=== PATIENT | male | born 1945 | race Caucasian/White ===

== ENCOUNTER → 2016-08-20 11:32 | Outpatient (CLI) | payer MEDICARE, OTHER | END | disposition home or self-care (01) | LOC: D.MRI 08-16 16:00 | DX: M25.571 Pain in right ankle and joints of right foot (principal) ==

== ENCOUNTER → 2016-10-28 07:57 | Outpatient (CLI) | payer MEDICARE, OTHER | LOC: D.MRI 10-23 08:30 | DX: M25.562 Pain in left knee (principal) ==

== ENCOUNTER 2016-11-08 05:29 | Day surgery (SDC) | payer MEDICARE, OTHER ==
[2016-11-07 14:05] LABS: HEMATOCRIT 41.6 % (42.0-54.0); HEMOGLOBIN 13.1 g/dL (13.5-17.5); MCH 30.7 pg (26.0-34.0); MCHC 31.5 g/dL (31.0-37.0); MCV 97.4 fL (80.0-100.0); MEAN PLATELET VOLUME 9.1 fL (7.4-10.4); RBC 4.27 10x6/uL (4.20-6.10); RDW 15.2 % (11.5-14.5); WBC 8.3 10x3/uL (4.8-10.8)
[2016-11-07 14:28] LABS: ANION GAP 14.6 mmol/L (8-16); CALCIUM 8.7 mg/dL (8.5-10.1); CARBON DIOXIDE 24.7 mmol/L (21.0-32.0); CREATININE - SERUM 1.1 mg/dL (0.6-1.3); POTASSIUM - SERUM 4.3 mmol/L (3.5-5.1)
[~2016-11-08] VITALS: Ht 177.8 cm; Wt 83.0 kg
--- NOTE | ~2016-11-08 | OP ---
PATIENT NAME: BRENDAN RUBALCAVA MEDICAL RECORD: [id number] :45 [facility] DATE: SURGEON: LEIA MEREDITH MD DATE OF OPERATION: 11/08/2016 PREOPERATIVE DIAGNOSIS: Left knee meniscus tear and pain. POSTOPERATIVE DIAGNOSIS: Left knee meniscus tear and pain, more grade III-IV chondromalacia, medial femoral condyle and posterior lateral meniscus tear. SURGEON: Benitez Meredith MD. PROCEDURE PERFORMED: Partial lateral meniscectomy and chondroplasty. CONDITION: The patient tolerated the procedure well, was transferred to the recovery room in stable condition at termination of the procedure. INDICATIONS: This is a 71-year-old gentleman, who has been having significant pain in his knee. He has gotten progressively worse. He ____ been tolerating it. His MRI and his x-rays were not consistent with significant degenerative changes. We therefore discussed the options and felt like he would benefit from still trying a knee arthroscopy. We discussed the blood loss, scar, continued pain, need for further procedure. He understood and wished to proceed. OPERATIVE REPORT: The patient was taken to the operating room, placed in supine position. General anesthesia was obtained. His left knee was confirmed to be the correct knee. It was prepped and draped in the normal fashion. After this was accomplished, he had portal sites marked and injected with 0.25% Marcaine with epinephrine. I established anterolateral portal for the scope and inflow, superior medial for the outflow. The knee was inspected. There were some mild changes in the patellofemoral joint, but nothing significant coming down the medial gutter into the medial joint line. Overall, the medial joint looked good other than he did have some grade II-III chondromalacia of the medial femoral condyle. I did establish an anterior medial portal under direct visualization. I did not see any distinct medial meniscus tear on probing this area. I did debride some of the cartilage coming off the medial femoral condyle. Moving to the notch, his ACL and PCL were notably intact. Moving to the lateral side, his cartilage on the lateral side looked very good except he did have a posterior lateral root tear. I did debride this area, not taking much at all. Once this was accomplished, I went back and checked for any further tears. I could not find any further tears. I therefore brought the case to a close. He was injected with 10 cc Duramorph and 3-4 cc of Marcaine plain. His portal sites were closed with 3-0 Prolene. He was awakened and transferred to the recovery room in stable condition, having tolerated the procedure well. TRANSINT:[id number] Voice Confirmation ID: [id number] DOCUMENT ID: [id number] OPERATIVE REPORT [id number] BRENDAN RUBALCAVA, LEIA CASTILLO MD CC: [id number] DICTATION DATE: 11/08/16 08 STITCH BONDING MACHINE OPERATOR: 11/08/16 1147 [facility] 11/08/[address] [address]
[~2016-11-08 05:29] MED LIST: AMBIEN10 MG PO; BUPROPION XL150 MG PO; CARTIA XT180 MG PO; ENDOCET 10-3251 TAB PO; EZFE 200200 MG PO; LIALDA1.2 G PO; MOBIC7.5 MG PO; MULTIPLE VITAMI1 TA1 PO; PRAVACHOL20 MG PO; PROTONIX40 MG PO; SUPER B COMPLE150 MG PO; VITAMIN D31000 UNIT PO
[2016-11-08 06:28] VITALS: BP 119/78; Ht 177.8 cm; Wt 83.0 kg
[2016-11-08] MEDS ORDERED: PERCOCET 10/3251 TA1 PO (08:12)
--- NOTE | 2016-11-08 08:17 | NUR ---
CARE TO JUDITH CRISTOBAL RN @[phone]
--- NOTE | 2016-11-08 09:34 | NUR ---
IV DC WITH CATHER TIP INTACT
== END 2016-11-08 10:00 | disposition home or self-care (01) ==
LOC: D.OPS 05:29 → D.PAN 07:00 → D.OPS 10:00 → D.PAN 10:15
PROVIDERS: Anesthesiology
DX: S83.282A Other tear of lateral meniscus, current injury, left knee, initial encounter (principal); M94.262 Chondromalacia, left knee; M25.562 Pain in left knee; S83.222A Peripheral tear of medial meniscus, current injury, left knee, initial encounter; Z01.812 Encounter for preprocedural laboratory examination

== ENCOUNTER → 2018-02-10 16:04 | Outpatient (CLI) | payer MEDICARE, OTHER ==
[2016-11-08 06:28] VITALS: BMI 26.3
[~2018-02-10 16:04] MED LIST changes: +PERCOCET 10/3251 TA1 PO
== END | disposition home or self-care (01) ==
LOC: D.CT 16:04
DX: R10.32 Left lower quadrant pain (principal)

== ENCOUNTER → 2018-04-01 18:14 | Outpatient (CLI) | payer MEDICARE, OTHER ==
[2016-11-08 06:28] VITALS: BMI 26.3
== END | disposition home or self-care (01) ==
LOC: D.LABREF 18:14
DX: R31.9 Hematuria, unspecified (principal)

== ENCOUNTER 2018-04-21 05:40 | Day surgery (SDC) | payer MEDICARE, OTHER ==
[~2018-04-21] VITALS: Ht 177.8 cm; Wt 80.3 kg
--- NOTE | ~2018-04-21 | OP ---
PATIENT NAME: BRENDAN RUBALCAVA MEDICAL RECORD: [id number] :45 [facility] DATE: SURGEON: MARY CORDON MD DATE OF OPERATION: 04/21/2018 SURGEON: Mary Cordon MD ANESTHESIA: TIVA by Bartolo Scott CRNA. DIAGNOSIS: Elevated PSA of 6.05 on 02/17/2018. PROCEDURES: Transrectal ultrasound and prostate biopsy. FINDINGS: 29-gram prostate with no hypoechoic areas. SPECIMENS: Prostate biopsy cores. ESTIMATED BLOOD LOSS: None. CLINICAL HISTORY: This is a 73-year-old male who was found to have an elevated PSA of 6.05. Earlier this year, it had been 4.0. He has minimal voiding symptoms. He also had gross hematuria. Regarding the hematuria, he had a CT scan of the abdomen and pelvis, which shows a 5 mm right renal stone and a 7 mm left renal stone with no hydronephrosis. At some future point, we plan to perform a cystoscopy, ureteral stent insertion, and lithotripsy of each of the stones. Right now, he comes today to have a transrectal ultrasound and prostate biopsy. He is not allergic to any medications. He was given Ancef communications director to the OR. DESCRIPTION OF PROCEDURE: The patient was given IV sedation. He was then placed into dorsal lithotomy position and prepped and draped. A transrectal ultrasound probe was introduced and prostate size measurements were obtained. We obtained a size of 29 grams. Sextant biopsies were then obtained with at least 3 cores from each sextant. Once all the specimens were obtained, the procedure was terminated. The patient was awakened and brought back to his preoperative holding area. I will see him back at the end of this week to review the pathology with him. If it turns out to be benign, then we will go ahead and organize the treatment of his kidney stones. TRANSINT:[id number] Voice Confirmation ID: [id number] DOCUMENT ID: [id number] MARY CORDON MD at 1206 CC: [id number] DICTATION DATE: 04/21/18 0800 DIRECTOR COUNSELING BUREAU: 04/21/18 1048 [facility] 04/21/18 [place] [address]
[~2018-04-21 05:40] MED LIST changes: +LEVSIN/ANASP0.125 MG PO; +PENTASA500 MG PO
[2018-04-21 06:49] VITALS: BP 114/69; Ht 177.8 cm; Wt 80.3 kg
[2018-04-21 07:22] LABS: HEMATOCRIT 46.5 % (42.0-54.0); HEMOGLOBIN 14.1 g/dL (13.5-17.5); MCH 30.5 pg (26.0-34.0); MCHC 30.3 g/dL (31.0-37.0); MCV 100.6 fL (80.0-100.0); MEAN PLATELET VOLUME 10.5 fL (7.4-10.4); RBC 4.62 10x6/uL (4.20-6.10); RDW 15.1 % (11.5-14.5); WBC 7.5 10x3/uL (4.8-10.8)
== END 2018-04-21 09:10 | disposition home or self-care (01) ==
LOC: D.OPS 05:40 → D.PAN 07:30 → D.OPS 07:30
PROVIDERS: Anesthesiology
DX: R97.20 Elevated prostate specific antigen [PSA] (principal); Z01.812 Encounter for preprocedural laboratory examination

== ENCOUNTER → 2018-04-24 15:33 | Outpatient (CLI) | payer MEDICARE, OTHER ==
[2018-04-21 06:49] VITALS: BMI 25.4
== END | disposition home or self-care (01) ==
LOC: D.RAD 15:33
DX: N20.0 Calculus of kidney (principal)

== ENCOUNTER 2018-05-28 05:25 | Day surgery (SDC) | payer MEDICARE, OTHER ==
[2018-05-27 15:46] LABS: HEMATOCRIT 42.5 % (42.0-54.0); HEMOGLOBIN 13.5 g/dL (13.5-17.5); MCH 30.5 pg (26.0-34.0); MCHC 31.8 g/dL (31.0-37.0); MCV 95.9 fL (80.0-100.0); MEAN PLATELET VOLUME 9.8 fL (7.4-10.4); RBC 4.43 10x6/uL (4.20-6.10); RDW 14.6 % (11.5-14.5); WBC 5.5 10x3/uL (4.8-10.8)
[~2018-05-28] VITALS: Ht 177.8 cm; Wt 80.3 kg
--- NOTE | ~2018-05-28 | OP ---
PATIENT NAME: BRENDAN RUBALCAVA MEDICAL RECORD: [id number] :45 [facility] DATE: SURGEON: MARY CORDON MD DATE OF OPERATION: 05/28/2018 SURGEON: Mary Cordon MD ANESTHESIA: TIVA by Marina Sheikh CRNA DIAGNOSIS: Left renal stone, 7 mm. PROCEDURE: Left ESWL times 3000 shocks. FINDINGS: Radiodense left renal stone, 7 mm. BLOOD LOSS: None. CLINICAL HISTORY: This is a 73-year-old male who has bilateral renal stones. Earlier today, he had a left ureteral stent inserted. He comes now for lithotripsy. Since he already had IV antibiotics earlier this morning, no further antibiotics were given to the patient. DESCRIPTION OF PROCEDURE: The patient was placed on the treatment table. The stone was localized in 2 planes. He was then given IV sedation. 3000 shocks were given to the stone and the stone was seen to break up. I will see the patient back in 2 weeks' time with a KUB. He also has a strainer that he is going to go home with to catch any particles that may have passed out. TRANSINT:[id number] Voice Confirmation ID: [id number] DOCUMENT ID: [id number] MARY CORDON MD at 0820 CC: [id number] DICTATION DATE: 05/28/18 1433 [employer]IT: 05/28/182007 [facility] 05/28/18 [id number] [place] [address]
--- NOTE | ~2018-05-28 | OP ---
PATIENT NAME: BRENDAN RUBALCAVA MEDICAL RECORD: [id number] :45 LOCATION:[facility] ADMISSION DATE: SURGEON: RUBÉN CORDON MD DATE OF OPERATION: 05/28/2018 SURGEON: Rubén Cordon MD ANESTHESIA: TIVA by Major Lopez. DIAGNOSIS: Left 7-mm upper pole renal stone. PROCEDURES: Cystoscopy, left retrograde pyelogram, left ureteral stent insertion 6-Stateless x 26-cm with string attached. FINDINGS: Radiodense bilateral renal stones, but these are faint. Obstructive prostate with bilateral lateral lobe hyperplasia. Trabeculated bladder with diverticula. No bladder tumors seen. On retrograde pyelogram, no filling defects were seen. BLOOD LOSS: None. CLINICAL HISTORY: This is a 73-year-old male, who was being investigated for microscopic hematuria. He also had an elevated PSA and he had transrectal ultrasound of the prostate and prostate biopsy. The prostate biopsy is benign. On CT scan, he was found to have bilateral renal stones. He has a 5-mm right renal stone and a 7-mm left renal stone. I sent him for a KUB and these stones are radiodense. He comes today to have insertion of a left ureteral stent prior to having left ESWL later on today for the stone. He is not allergic to any medications. He was given Ancef marine chronometer assembler to the OR. DESCRIPTION OF PROCEDURE: The patient was given IV sedation. He was placed in dorsal lithotomy position and prepped and draped. Lidocaine jelly was inserted into the urethra. A 21-Stateless cystoscope with 30-degree lens was used for visualization. Findings are as outlined above. Since the stone was not definite on fluoroscopy, I proceeded with a retrograde pyelogram. An open-ended ureteral catheter was inserted into the left ureteral orifice and diluted contrast was injected. This outlined the kidney, but again the stone was not clearly evident. Through the lumen of the ureteral catheter, we inserted a Sensor wire up into the renal pelvis. The ureteral catheter was then removed entirely. Over the Sensor wire, we inserted the 6-Stateless x 26-cm ureteral stent. Once the stent was in correct position, the wire was entirely withdrawn. The distal end of the stent was pushed in using the pusher. The bladder was then emptied through the scope and then the scope was removed. The string on the distal end of the stent is maintained. It hangs out of the urethra. We tied a knot to itself and then cut it shorter. On fluoroscopy once we saw the retrograde pyelogram contrast drain out, we saw the stone in the loop of the stent. TRANSINT:[id number] Voice Confirmation ID: [id number] DOCUMENT ID: [id number] OPERATIVE REPORT [id number] BRENDAN RUBALCAVA, RUBÉN Sutherland MD at 0904 CC: [id number] DICTATION DATE: 05/28/18814 CONTRACTOR BROOMCORN THRESHING: 05/28/18 0827 [facility] [address] [place] [address]
[2018-05-28 06:30] VITALS: BP 110/79; Ht 177.8 cm; Wt 80.3 kg
== END 2018-05-28 15:40 | disposition home or self-care (01) ==
LOC: D.OPS 05:25 → D.PAN 08:00 → D.OPS 15:40
PROVIDERS: Anesthesiology
DX: N20.0 Calculus of kidney (principal); N40.1 Benign prostatic hyperplasia with lower urinary tract symptoms; N13.8 Other obstructive and reflux uropathy; N32.89 Other specified disorders of bladder; N32.3 Diverticulum of bladder; Z01.812 Encounter for preprocedural laboratory examination

== ENCOUNTER → 2018-06-15 10:09 | Outpatient (CLI) | payer MEDICARE, OTHER ==
[2018-05-28 06:30] VITALS: BMI 25.4
== END | disposition home or self-care (01) ==
LOC: D.RAD 06-10 10:00
DX: N20.0 Calculus of kidney (principal)

== ENCOUNTER → 2018-06-17 18:00 | Outpatient (CLI) | payer MEDICARE, OTHER ==
[2018-05-28 06:30] VITALS: BMI 25.4
== END | disposition home or self-care (01) ==
LOC: D.LABREF 18:00
PROVIDERS: Urology
DX: N20.0 Calculus of kidney (principal)

== ENCOUNTER → 2018-09-03 09:19 | Outpatient (CLI) | payer MEDICARE, OTHER ==
[2018-05-28 06:30] VITALS: BMI 25.4
== END | disposition home or self-care (01) ==
LOC: D.MRI 09:19
DX: M75.41 Impingement syndrome of right shoulder (principal)

== ENCOUNTER 2018-10-16 09:10 | Day surgery (SDC) | payer MEDICARE, OTHER ==
[2018-10-15 08:55] LABS: HEMATOCRIT 39.2 % (42.0-54.0); HEMOGLOBIN 12.6 g/dL (13.5-17.5); MCH 30.3 pg (26.0-34.0); MCHC 32.1 g/dL (31.0-37.0); MCV 94.2 fL (80.0-100.0); MEAN PLATELET VOLUME 8.9 fL (7.4-10.4); RBC 4.16 10x6/uL (4.20-6.10); RDW 15.5 % (11.5-14.5); WBC 3.7 10x3/uL (4.8-10.8)
[~2018-10-16] VITALS: Ht 177.8 cm; Wt 76.2 kg
[~2018-10-16 09:10] MED LIST changes: +FISH OIL 1,0001 CA1 PO; +LIPITOR40 MG PO; +MAG-OX 400 MG400 MG PO; +TUMERIC CURCUMIN PO; +VITAMIN B-12500 MC1 PO
[2018-10-16 10:27] VITALS: BP 130/78; Ht 177.8 cm; Wt 76.2 kg
[2018-10-16] MEDS ORDERED: HYDROCODON-ACE1 EA10 PO (15:12)
--- NOTE | 2018-10-16 17:29 | NUR ---
1649 COMPLAINED OF SHARP, POUNDING HEADACHE. VICODIN GIVEN PER DR Simon.
--- NOTE | 2018-10-19 12:46 | OP ---
PATIENT NAME: BRENDAN RUBALCAVA MEDICAL RECORD: [id number] :45 LOCATION:[facility] ADMISSION DATE: SURGEON: JOSE ANGEL HO DO DATE OF OPERATION: 10/16/2018 PROCEDURES PERFORMED: Right shoulder arthroscopy, subacromial decompression, distal clavicle excision, labral debridement, biceps tenodesis, and rotator cuff debridement. PREOPERATIVE DIAGNOSES: Right shoulder partial rotator cuff tear, superior labral anterior posterior tear, subacromial impingement and acromioclavicular joint arthritis. POSTOPERATIVE DIAGNOSES: Right shoulder partial rotator cuff tear, superior labral anterior posterior tear, subacromial impingement and acromioclavicular joint arthritis. INDICATIONS: Mr. Rubalcava is a 73-year-old male who has had right shoulder pain for quite some time and tried injections to no avail. He had an MRI, which did show partial rotator cuff and likely a SLAP tear and a type 2 acromion as well as acromioclavicular joint arthritis. I informed him that since he had failed nonoperative management, we would do the scope. I looked at the cuff and it was partially torn and it was not greater than 50% on the articular side, I looked at it with the scope and decide what to do and if it is greater than 50%, then I would repair it and if it were not, then I would debride it. He was okay with that plan as well as the other things and is aware of the risks of infection, bleeding, damage to nerves and vessels and need for further surgery. Once he was aware of those, he signed the consent. SURGEON: Jose Angel Ho DO DESCRIPTION OF PROCEDURE: The patient received a block by anesthesia in the preoperative area and he was given 900 mg of clindamycin preoperatively. He was taken to the operative suite, laid in the left lateral decubitus position with the right arm up and axillary roll underneath the axilla. The right shoulder was prepped and draped in sterile fashion with a timeout being performed afterwards. There were in agreement of correct side, site, and patient, and procedure and procedure then began with insufflating the shoulder joint itself with an 18-gauge spinal needle entered through the posterior portal approximately 60 mL of normal saline was entered into it. This was then removed and then an #11 blade scalpel was used to establish the posterior portal. The trocar was then entered and the shoulder joint and the camera entered and the anterior portal was established with a 15-gauge spinal needle and 11-blade scalpel and then a trocar and then a burner was brought in. The joint was inspected. There was not much if any chondromalacia seen. The labral tear was noted at the superior to anterior portion of the glenoid labrum. The biceps was then tenotomized. The rotator cuff was then inspected and a partial tear of the articular side was seen at the more anterior insertion not of the posterior. This was debrided to ensure that the fibers were intact and just debrided the frayed fibers. The labrum was debrided as well with the burner and the subscapularis tendon was inspected and seen to be in good repair. The inferior gutter was inspected and no loose bodies were seen in that. Then, the scope was put into the subacromial space. A lateral portal was established with an 18-guage spinal needle and 11-blade scalpel and then a decompression was done as OPERATIVE REPORT [id number] BRENDAN RUBALCAVA well as a bursectomy. The bursa was quite inflamed. The distal lateral acromion was removed with a shaver as well as the distal clavicle opening the AC joint up to approximately 7 mm. The rotator cuff was then inspected on the bursal side. No full-thickness tears were seen on the bursal side. The water was then turned off, the suction was turned on to remove the excess fluid. The incision was then made on the anterior humerus. Careful dissection was made down to the biceps tendon and this was pulled out through the incision and whipstitched and then a single unicortical hole was put into the humerus and a button had been placed on the suture that had been used to whipstitch the long head of bicep tendon and it was tacked down into there and tightened down, tied and then a free needle was used to tie back through the biceps tendon and this was tied down. The excess suture and tendon were cut at that time and this was thoroughly irrigated and then closed with 2-0 Vicryl and 4-0 Monocryl ran on the skin, 2-0 Vicryl in an inverted interrupted fashion. The portal sites on the shoulder were then closed with 4-0 Monocryl in an inverted interrupted fashion and Dermabond glue was placed on all the sites. Tereso saunders Tegaderm were placed over those. The patient was awakened and taken to the recovery in stable condition, placed in a sling. COMPLICATIONS: None. BLOOD LOSS: Minimal. TRANSINT:[id number] Voice Confirmation ID: [id number] DOCUMENT ID: [id number] JOSE ANGEL HO DO at 1246 CC: [id number] DICTATION DATE: 10/16/18 1518 EDUCATION PROGRAM SPECIALIST: 10/16/18 2344 [facility] 10/16/18 [id number] [place] [address]
== END 2018-10-16 17:20 | disposition home or self-care (01) ==
LOC: D.OPS 09:10 → D.PAN 12:45 → D.OPS 12:45
PROVIDERS: Anesthesiology; ATTEND Orthopaedic Surgery
DX: M75.111 Incomplete rotator cuff tear or rupture of right shoulder, not specified as traumatic (principal); S43.431A Superior glenoid labrum lesion of right shoulder, initial encounter; M75.41 Impingement syndrome of right shoulder; M13.811 Other specified arthritis, right shoulder; Z01.812 Encounter for preprocedural laboratory examination

== ENCOUNTER → 2019-01-19 14:27 | Outpatient (CLI) | payer MEDICARE, OTHER ==
[2018-10-16 10:27] VITALS: BMI 24.1
[~2019-01-19 14:27] MED LIST changes: +HYDROCODON-ACE1 EA10 PO
== END | disposition home or self-care (01) ==
LOC: D.RAD 14:27
PROVIDERS: ATTEND Nurse Practitioner
DX: R60.9 Edema, unspecified (principal)

== ENCOUNTER → 2019-01-20 10:08 | Outpatient (CLI) | payer MEDICARE, OTHER ==
[2018-10-16 10:27] VITALS: BMI 24.1
--- NOTE | 2019-01-24 10:48 | EC ---
PATIENT:BRENDAN RUBALCAVA DATE OF SERVICE: 01/20/19 SEX: M MEDICAL RECORD: [id number] DATE OF : 45 LOCATION:[facility] AGE OF PATIENT: 73 ADMISSION DATE: 01/20/19 REFERRING PHYSICIAN: INTERPRETING PHYSICIAN: BRITTON SANTILLAN MD ECHOCARDIOGRAM REPORT ECHO CHARGES 4 ECHO COMPLETE Date: 01/20/19 CLINICAL DIAGNOSIS: EDEMA/RODRIGUEZ H/O CAD ECHOCARDIOGRAPHIC MEASUREMENTS (adult normal given) AC root (d.<3.7cm) 3.6 cm LV Septum d (<1.2 cm> 1.6 cm Valve Excursion 2.2 cm LV Septum (systole) 1.7 cm Left Atria (s.<4.0cm> 3.4 cm LVPW d(<1.2cm) 1.2 cm RV (d.<2.3cm) 2.4 cm LVPW (sytole) 2.2 cm LV diastole(<5.6CM) 5.6 cm MV E-F(>70mm/sec) cm LV systole 2.7 cm LVOT Diameter 2.2 cm MV exc.(>10mm) cm Est.ejection fraction (50-75%) % DOPPLER: LVIT cm/sec A 83.0 cm/sec E 66.0 cm/sec LA cm/sec RVSP 43.0 mmHg LVOT 122 cm/sec AOP1/2T m/s Asc. Ao 129 cm/sec RVOT 70.0 cm/sec RA cm/sec PA 84.0 cm/sec AV Gradient Peak 6.6 mmHg AV Mean 3.2 mmHg AV Area 3.9 cm MV Gradient Peak 3.1 mmHg MV Mean 1.3 mmHg MV Area cm COMMENTS: OP - HC Deal Architect: Bill MANRIQUEZ CHARLEE Latex Ribbon Machine Operator: 3 Dr. Evangelista TAPE# PACS Pericardial Effusion Y DATE OF SERVICE: Adequate 2-D echo, color flow and spectral Doppler, and M-mode. LVH present. LV internal dimensions are normal. Wall motion is normal. EF is greater than or equal to 55%. Aortic valve sclerosis without stenosis by Doppler interrogation. Left atrium is normal at 3.4 cm. Mitral valve shows no prolapse. Mild MR. Right-sided chambers are grossly normal. Trace TR. TRANSINT:[id number] Voice Confirmation ID: [id number] DOCUMENT ID: [id number] ECHOCARDIOGRAM REPORT [id number] BRENDAN RUBALCAVA,BRITTON Gonsales MD at 1048 CC: [id number] DICTATION DATE: 01/23/19 1202 RESIDENTIAL CONCIERGE: 01/23/19 1408 [facility] 01/20/19 [id number]
== END | disposition home or self-care (01) ==
LOC: D.HCCARDIO 10:00
PROVIDERS: ATTEND Internal Medicine Interventional Cardiology
DX: R06.02 Shortness of breath (principal)